=== PATIENT | male | born 1980 | race Native Hawaiian/Other Pacific Islander ===

== ENCOUNTER 2023-03-07 07:27 | Inpatient (IN) | payer OTHER, SELFPAY ==
[2023-03-07] VITALS (10 sets, daily range): BP systolic 133–153; BP diastolic 74–87; PULSE 97–130; RESP 16–28; TEMP 36.8–37.7; O2SAT 93–98; BMI 29.5
--- NOTE | ~2023-03-07 | CT_ITS ---
EXAMINATION: 1. CT pelvis w con 2. CT LE LT wo con DATE: 03/07/2023 08:52 INDICATION: Left groin and thigh abscesses. TECHNIQUE: Computed tomography (CT) of the pelvis was performed with 100 mL Omnipaque [address] of the left thigh was performed without intravenous contrast. Automated exposure contro l and iterative reconstruction technique were employed. The dose-length product was 338.86 mGy-cm for the pelvis and 1007.72 mGy-cm for the left thigh. COMPARISON: None FINDINGS: CT PELVIS: There are no dilated loops of bowel. The appendix is normal. There are no pathologically e nlarged lymph nodes. There is no free intraperitoneal fluid. Arterial calcifications are noted withou t significant arterial stenosis. There is mild osteoarthritis of the hips. CT LEFT THIGH: There is asymmetric subcutaneous fat stranding in left thigh, consistent with edema. T here is intermuscular edema in medial left thigh. At the superficial posterior aspect of gracilis mus kelvin, there is focal fluid measuring 6.4 x 2.5 x 0.9 cm. IMPRESSION: 1. Asymmetric edema in left thigh. Focal fluid at the superficial posterior aspect of left gracilis m uscle may be severe edema, early abscess, or hematoma. Reviewed, dictated and finalized at location A. IMPRESSION: 1. Asymmetric edema in left thigh. Focal fluid at the superficial posterior asp ect of left gracilis muscle may be severe edema, early abscess, or hematoma.
--- NOTE | 2023-03-07 07:53 | ED.GENADULT ---
HPI - General Adult General Chief complaint: Wound/Laceration Stated complaint: abcess on thigh Time Seen by Provider: 03/07/23 07:45 History of Present Illness HPI narrative: 42-year-old male presented the ED for evaluation of an abscess to his left thigh. Patient did have follow-up with his primary care physician and did have the abscess drained and was started on Bactrim. Patient presented to the ED today because he felt that the symptoms were worsening. Patient has no prior history of diabetes but states that his blood sugars have been running high. His blood sugars on arrival today were 370. Related Data Home Medications Medication Instructions Recorded Confirmed No Home Medications 03/07/23 03/07/23 Allergies Allergy/AdvReac Type Severity Reaction Status Date / Time No Known Allergies Allergy Verified 03/07/23 08:06 Review of Systems Review of Systems: All systems reviewed & are unremarkable except as noted in HPI and below PMFSH Past Medical History Medical History (Updated 03/07/23 @ 15:30 by Yumiko Ramos NP) Abscess H/O drainage of abscess Hyperglycemia Wound drainage Family History Family History (Updated 03/07/23 @ 15:32 by Beverly Rose RN) Mother Arthritis Hypertension Social History Social History (Updated 03/07/23 @ 15:31 by Yumiko Ramos NP) Social History: the patient lives home alone. He is single and does not have any children. The patient works in sales for [employer]. Lifelong smoker. He does not have a durable power criminal defense attorney for healthcare. Code status full code Smoking status: Never smoker Alcohol intake: never Substance use: never Lack of Transportation: No Lack of Food: Never True Current Housing: I Have Housing Concerned About Future Housing: No Difficulty Paying Gas/Electric Bills: No Difficulty Paying for Meds: No Currently Unemployed: No Education: Decline to Answer Difficulty w/ Childcare or Family Care: No Spiritual care concerns: No Exam Narrative: APPEARANCE: Well appearing, no pain, no distress, well-nourished. HEAD: normocephalic, atraumatic. EYES: PERRLA/EOMI, conjunctivae clear. NOSE: Normal no drainage NECK: Supple. No adenopathy, no masses. RESPIRATORY: Airway patent, respirations nonlabored. Clear to auscultation bilaterally, no rales, rhonchi, wheezing. CARDIOVASCULAR: Regular rate and rhythm without murmurs rubs or gallops. ABDOMINAL: Soft, nontender, nondistended, normal bowel sounds MUSCULOSKELETAL: Moves all extremities. Strength/ROM intact, No edema, No calf tenderness. NEURO: Alert. Cranial nerves II through XII intact. Grossly intact SKIN: Open abscess on the left leg just lateral to the genitals. Patient also has induration and firmness tracking posteriorly along the buttock Course Course Emergency Course: 42-year-old male presented to the ED for evaluation of a worsening abscess. Patient's blood sugars were 370s and he was treated with IV fluids. Patient was started on IV clindamycin and CT scan with contrast was ordered to evaluate the extent of the abscess. Surgery was consulted. CT scan did show evidence of abscess. I was unable to see the abscess on ultrasound so no incision and drainage was done in the emergency department. Patient did have an elevated white blood cell count of 19.6. Patient had initially been started on clindamycin but after the extent of the abscess and plan for admission patient was switched to Rocepsusann Patrick and Flagyl. Case was discussed with surgery and patient was admitted to the hospitalist. Patient was updated on the plan for admission and treatment. Vital Signs Vital signs: Vital Signs Temperature 99.6 F 03/07/23 07:28 Pulse Rate 130 H 03/07/23 07:28 Respiratory Rate 18 03/07/23 07:28 Blood Pressure 140/78 03/07/23 07:28 Pulse Oximetry 98 03/07/23 07:28 Oxygen Delivery Room Air 03/07/23 07:28 Temperature 99.
[2023-03-07 08:03] LABS: Basophils Absolute Auto 0.1 K/mm3 (0.0-0.1); Basophils Percent Auto 0.4 % (0.2-1.2); Eosinophils Percent Auto 0.1 % (0-4.4); Hematocrit 40.2 % (42.0-52.0); Hemoglobin 13.6 g/dL (14.0-18.0); Immature Granulocyte Absolute 0.29 K/mm3 (0.00-0.031); Immature Granulocyte Percent A 1.5 % (0-0.5); Lymphocytes Percent Auto 10.2 % (18.3-44.2); Mean Corpuscular HGB Conc 33.8 g/dl (32-36); Mean Corpuscular Hemoglobin 30.5 pg (26-34); Mean Corpuscular Volume 90.1 fl (80-100); Mean Platelet Volume 8.6 fl (7.4-10.4); Monocytes Absolute Auto 1.4 K/mm3 (0.1-0.6); Monocytes Percent Auto 6.9 % (2.6-8.5); Neutrophils Absolute Auto 15.9 K/mm3 (1.3-6.7); Neutrophils Percent Auto 80.9 % (45.5-73.1); Platelet Count Result 309 k/mm3 (150-375); Red Blood Count 4.46 M/mm3 (4.6-6.20); Red Cell Distribution Width 12.3 % (11.5-14.5); White Blood Count 19.6 K/mm3 (4.5-10.0)
[2023-03-07] MEDS: CLINDAMYCIN 600 MG/D5W 50 ML 600 MG/50 ML PIGGYBACK 100 MG IVPB (08:09)
[2023-03-07 08:13] LABS: Glucose Point of Care 370 mg/dl (65-105)
[2023-03-07 08:14] LABS: INR 1.1; Prothrombin Time 15.1 Seconds (11.1-14.7)
[2023-03-07 08:15] LABS: Alanine Aminotransferase 28 U/L (6-50); Albumin Level 3.4 g/dL (3.5-5.1); Alkaline Phosphatase 156 U/L (38-126); Anion Gap 11 mmol/L (8-16); Aspartate Amino Transferase 22 U/L (17-59); Bilirubin,Total 0.8 mg/dL (0.2-1.3); Blood Urea Nitrogen 11 mg/dL (9-20); Calcium 8.3 mg/dL (8.4-10.2); Carbon Dioxide 22 mmol/L (22-30); Chloride 92 mmol/L (98-107); Estimated CRCL calculation 148 ml/min; Estimated Glomerular Filt Rate > 60; Glucose 372 mg/dL (65-110); Partial Thromboplastin Time 28.4 SECONDS (22.3-36.8); Potassium 3.9 mmol/L (3.4-5.0); Sodium 125 mmol/L (137-145)
[2023-03-07] MEDS: SODIUM CHLORIDE 0.9% IV 1,000 ML 999 ML IV CONT ×2 (08:47→09:20)
[2023-03-07] MEDS: metroNIDAZOLE 500 MG/ISO 100ML 500 MG/100 ML BAG 100 MG IVPB ×2 (10:27→17:18)
[2023-03-07] MEDS: LIDOCAINE HCL 1% LOCAL INJ 10 ML VIAL INFILTRATE (12:00)
[2023-03-07] MEDS: HYDROmorphone HCL INJ (*CRX) 1 MG/ML SYR 0.5 MG IV PUSH ×3 (12:16→21:39)
[2023-03-07] MEDS: ONDANSETRON INJ 4 MG/2 ML VIAL IV PUSH (12:17)
--- NOTE | 2023-03-07 12:19 | PM.IMHP ---
H&P: HPI History of Present Illness Date/Time: 03/07/23 12:19 Chief Complaint: wound to left thigh Narrative: the patient came to the emergency room here today to be evaluated for left thigh abscess. The patient was seen at [facility] 1 week ago and had an I&D to left thigh and was prescribed antibiotics Bactrim. The patient stated that continued to get worse. Patient thinks that this abscess came about suddenly due to his pants being too tight in rubbing the left thigh causing it to became irritated and an abscess developed. Patient came in with a fever today of 99.6. his blood sugar was 370 today. The patient stated that he had taken metformin 500 mg twice a day up to year ago and stopped taking it because he felt that he was controlling his diabetes with his diet and exercise. The patient was given clindamycin IV fluids vancomycin Rocephin Flagyl and Dilaudid in the emergency room. An I&D was performed in the emergency room with only bloody discharge. The left leg is draining serous sanguinous drainage today. Surgery has been consulted. The patient will be NPO after midnight and will be prepared to go to surgery tomorrow. 19.6 is his white count. H&H 13.6 And 40.2. sodium was 125. Glucose was [address] was read as a following?Asymmetric edema in left thigh. Focal fluid at the superficial posterior aspect of left gracilis muscle may be severe edema, early abscess, or hematoma.The patient is being admitted to observation status on the date of service of 03/07/2020 Review of Systems Review of Systems: All systems reviewed & are unremarkable except as noted in HPI and below Constitutional: Constitutional: Reports as per HPI and Reports no additional constitutional complaints Eyes: Eyes: Reports as per HPI and Reports no additional eye complaints ENT: Reports system reviewed and no additional complaints, except as documented and Reports Normal hearing present Cardiovascular: Cardiovascular: Reports no additional cardiovascular complaints Respiratory: Respiratory: Reports no additional respiratory complaints and Reports no additional respiratory complaints Gastrointestinal: Gastrointestinal: Reports as per HPI and Reports no additional gastrointestinal complaints Musculoskeletal: Musculoskeletal: Reports no additional musculoskeletal complaints Integumentary/Breasts: Skin/Breast: Reports system reviewed and no additional complaints, except as docu and Reports as per HPI Neurologic: Reports system reviewed and no additional complaints, except as documented, Reports as per HPI and Reports Normal hearing present Psychiatric: Psychiatric: Reports no additional psychiatric complaints and Reports as per HPI Endocrine: Endocrine: Reports no additional endocrine complaints Hematologic/Lymphatic: Hematologic/Lymphatic: Reports no additional hematologic/lymphatic complaints Allergic/Immunologic: Allergic/Immunologic: Reports no additional allergic/immunologic complaints PMFSH Past Medical History Medical History (Updated 03/07/23 @ 15:30 by Yumiko Ramos NP) Abscess H/O drainage of abscess Hyperglycemia Wound drainage Family History Family History (Updated 03/07/23 @ 15:30 by Yumiko Ramos NP) Mother Arthritis Hypertension Social History Social History (Updated 03/07/23 @ 15:31 by Yumiko Ramos NP) Social History: the patient lives home alone. He is single and does not have any children. The patient works in sales for [employer] 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 Code status full code Smoking status: Never smoker Alcohol intake: never Substance use: never Lack of Transportation: No Lack of Food: Never True Current Housing: I Have Housing Concerned About Future Housing: No Difficulty Paying Gas/Electric Bills: No Difficulty Paying for Meds: No Currently Unemployed: No Education: Decline to Answer
--- NOTE | 2023-03-07 12:25 | ADMGEN ---
This patient, Woody Lambert, was admitted to 3 [facility] Surg Room 310-01. Patient/family oriented to hospital policies and general routines including ID bracelet, bed and alarms, visiting hours, pain management, procedures, bathroom and other care routines, personal items, smoking policy, room service/diet, and visiting hours. Information on how to activate the Rapid Response Team has been discussed. Patient/Family are encouraged to report perceived risks to care and to ask questions if they do not understand what they are told or what they should do. Report from Sumanth SUAREZ.
--- NOTE | 2023-03-07 13:33 | PM.CNGS ---
Assessment and Plan Assessment and plan (1) Abscess: Code(s): L02.91 - Cutaneous abscess, unspecified Status: Acute Assessment and Plan: will likely need further drainage of posterior area, pt very tender and will need anesthesia for procedure, plan for OR tomorrow, cont local wound care and abx for now (2) Hyperglycemia: Code(s): R73.9 - Hyperglycemia, unspecified Status: Acute Assessment and Plan: new diabetic, mgmt per primary team History of Present Illness Consult details Consult date: 03/07/23 Reason for consult: wound care Requesting physician: Yumiko Ramos NP Narrative: The patient is a 42-year-old male presenting to the emergency department with worsening left posterior thigh abscess. The patient was actually seen in urgent care a few days ago and had drainage of an area anterior to this. The patient was started on antibiotic. The patient reports that since that visit the entire area has become more swollen and painful. Patient reports subjective fevers and chills at home. Workup in the emergency department, including imaging, is significant for worsening edema and focal fluid collection in the left posterior thigh. Of note, the patient is likely a newly diagnosed diabetic as well. Review of Systems Constitutional: Constitutional: Reports as per HPI, Denies anorexia, Reports chills, Reports fatigue, Reports fever(s), Reports lethargy, Reports malaise, Denies poor appetite, Reports weakness, Denies weight gain and Denies weight loss Eyes: Eyes: Reports no additional eye complaints ENT: Reports system reviewed and no additional complaints, except as documented Cardiovascular: Cardiovascular: Reports no additional cardiovascular complaints Respiratory: Respiratory: Reports no additional respiratory complaints Gastrointestinal: Gastrointestinal: Reports as per HPI Genitourinary: Genitourinary: Reports no additional male genitourinary complaints Musculoskeletal: Musculoskeletal: Reports as per HPI Integumentary/Breasts: Skin/Breast: Reports as per HPI Neurologic: Reports system reviewed and no additional complaints, except as documented Psychiatric: Psychiatric: Reports no additional psychiatric complaints Endocrine: Endocrine: Reports no additional endocrine complaints PMFSH Comments No past medical or surgical history FH - DM SH - no tobacco, ETOH Meds Home Medications and Allergies Allergies Allergy/AdvReac Type Severity Reaction Status Date / Time No Known Allergies Allergy Verified 03/07/23 08:06 Vital Signs Vital Signs - 24 hr 03/07/23 07:28 03/07/23 09:05 03/07/23 10:30 Temperature 37.6 C Pulse Rate 130 H 99 98 Respiratory Rate 18 22 H 22 H Blood Pressure 140/78 135/87 136/84 Pulse Oximetry 98 95 93 Oxygen Delivery Room Air 03/07/23 10:31 03/07/23 10:46 03/07/23 11:42 Temperature Pulse Rate 100 98 97 Respiratory Rate 20 19 22 H Blood Pressure 136/84 133/84 138/84 Pulse Oximetry 93 95 96 Oxygen Delivery 03/07/23 12:03 Temperature 36.8 C Pulse Rate 98 Respiratory Rate 16 Blood Pressure 144/74 H Pulse Oximetry 96 Oxygen Delivery Exam Const: General: cooperative, comfortable, no acute distress and overweight HENMT: Head: normal to inspection, normocephalic and atraumatic Eyes: General: appearance normal, both eyes and all related structures Neck: Neck: normal visual inspection, full ROM and no lymphadenopathy Resp: Effort & Inspection: normal respiratory effort Auscultation: clear to auscultation bilaterally Cardio: Rate: regular rate Rhythm: regular rhythm GI: Inspection: normal to inspection and non-distended GI Palp: No abdominal tenderness, Yes Soft to palpation, No Tenderness to palpation present (GI), No Guarding due to palpation present (GI) and No Rigid due to palpation Skin: Other: large area of induration extending from L groin to L posterior thigh, open incision draining some purulent
--- NOTE | 2023-03-07 14:32 | WPDANESEPPF ---
Anes - Initial Pre Proc Eval Procedure: Operation Date: 03/08/23 13:30 Proposed Procedures p Complex Incision And Drainage Left Posterior Thigh Abscess - Padmini Han MD Date/Time: 03/07/23 14:32 Surgeon: Karen Gonsalez DO Pre Op Diagnosis: Hyperglycemia, Abscess Patient Data Age: 42 Gender: M Height: 1.63 m Weight: 77 kg Last Vital Signs Temp 36.8 C 03/07/23 12:03 Pulse 98 03/07/23 12:03 Resp 16 03/07/23 12:03 BP 144/74 H 03/07/23 12:03 Pulse Ox 96 03/07/23 12:03 O2 Del Method Room Air 03/07/23 07:28 Allergies Allergy/AdvReac Type Severity Reaction Status Date / Time No Known Allergies Allergy Verified 03/07/23 08:06 Home Medications Medication Instructions Recorded Confirmed Type No Home Medications 03/07/23 03/07/23 History Laboratory Tests 03/07/23 03/07/23 07:50 07:58 WBC 19.6 H K/mm3 (4.5-10.0) RBC 4.46 L M/mm3 (4.6-6.20) Hgb 13.6 L g/dL (14.0-18.0) Hct 40.2 L % (42.0-52.0) MCV 90.1 fl (80-100) MCH 30.5 pg (26-34) MCHC 33.8 g/dl (32-36) RDW 12.3 % (11.5-14.5) Plt Count 309 k/mm3 (150-375) MPV 8.6 fl (7.4-10.4) Immature Gran % (Auto) 1.5 H % (0-0.5) Neut % (Auto) 80.9 H % (45.5-73.1) Lymph % (Auto) 10.2 L % (18.3-44.2) Guthrie % (Auto) 6.9 % (2.6-8.5) Eos % (Auto) 0.1 % (0-4.4) Baso % (Auto) 0.4 % (0.2-1.2) Lymph # (Auto) 2.00 K/mm3 (0.9-3.2) Guthrie # (Auto) 1.4 H K/mm3 (0.1-0.6) Eos # (Auto) 0.0 K/mm3 (0-0.3) Baso # (Auto) 0.1 K/mm3 (0.0-0.1) Abs Immat Gran (auto) 0.29 H K/mm3 (0.00-0.031) Absolute Neuts (auto) 15.9 H K/mm3 (1.3-6.7) Absolute Nucleated RBC 0.0 K/mm3 (0.0-0.012) Nucleated RBC % 0.0 % (0.0-0.2) PT 15.1 H Seconds (11.1-14.7) INR 1.1 APTT 28.4 SECONDS (22.3-36.8) Sodium 125 L mmol/L (137-145) Potassium 3.9 mmol/L (3.4-5.0) Chloride 92 L mmol/L (98-107) Carbon Dioxide 22 mmol/L (22-30) Anion Gap 11 mmol/L (8-16) BUN 11 mg/dL (9-20) Creatinine 0.50 L mg/dL (0.7-1.3) Estim Creat Clear Calc 148 ml/min Estimated GFR > 60 (59 - ) Glucose 372 H mg/dL (65-110) POC Capillary Glucose 370 H mg/dl (65-105) Calcium 8.3 L mg/dL (8.4-10.2) Total Bilirubin 0.8 mg/dL (0.2-1.3) AST 22 U/L (17-59) ALT 28 U/L (6-50) Alkaline Phosphatase 156 H U/L (38-126) Total Protein 7.0 g/dL (6.3-8.2) Albumin 3.4 L g/dL (3.5-5.1) Patient hx anesthesia problems: none Family hx anesthesia problems: none Results Review: All pre-operative results and documents have been reviewed as part of the pre-operative evaluation. [facility] Past Medical History Medical History (Updated 03/07/23 @ 15:30 by Yumiko Ramos NP) Abscess H/O drainage of abscess Hyperglycemia Wound drainage Family History Family History (Updated 03/07/23 @ 15:32 by Beverly Rose RN) Mother Arthritis Hypertension Social History Social History (Updated 03/07/23 @ 15:31 by Yumiko Ramos NP) Social History: the patient lives home alone. He is single and does not have any children. The patient works in sales for [employer]. 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 Code status full code Smoking status: Never smoker Alcohol intake: never Substance use: never Lack of Transportation: No Lack of Food: Never True Current Housing: I Have Housing Concerned About Future Housing: No Difficulty Paying Gas/Electric Bills: No Difficulty Paying for Meds: No Currently Unemployed: No Education: Decline to Answer Difficulty w/ Childcare or Family Care: No Spiritual care concerns: No Anes - Eval Final PreProcedure Day
[2023-03-07 16:56] LABS: Glucose Point of Care 249 mg/dl (65-105)
[2023-03-07] MEDS: INSULIN ASPART (*BKC) 100 UNITS/ML SUB-Q ×2 (17:18→21:40)
[2023-03-07 18:08] LABS: Anion Gap 10 mmol/L (8-16); Blood Urea Nitrogen 9 mg/dL (9-20); Calcium 7.7 mg/dL (8.4-10.2); Carbon Dioxide 20 mmol/L (22-30); Chloride 95 mmol/L (98-107); Estimated CRCL calculation 180 ml/min; Estimated Glomerular Filt Rate > 60; Glucose 275 mg/dL (65-110); Potassium 3.8 mmol/L (3.4-5.0); Sodium 125 mmol/L (137-145)
[2023-03-07 20:58] LABS: Glucose Point of Care 317 mg/dl (65-105)
[2023-03-07] MEDS: VANCOMYCIN 1,250 MG/NS 250 ML 1,250 MG/250 ML BAG 166.67 MG IVPB (21:39)
[2023-03-08] VITALS (10 sets, daily range): BP systolic 118–154; BP diastolic 75–90; PULSE 94–104; RESP 16–22; TEMP 36.8–37.7; O2SAT 93–99
[2023-03-08] MEDS: metroNIDAZOLE 500 MG/ISO 100ML 500 MG/100 ML BAG 100 MG IVPB ×3 (02:51→17:15)
[2023-03-08 07:26] LABS: Basophils Absolute Auto 0.1 K/mm3 (0.0-0.1); Basophils Percent Auto 0.3 % (0.2-1.2); Eosinophils Absolute Auto 0.1 K/mm3 (0-0.3); Eosinophils Percent Auto 0.3 % (0-4.4); Hematocrit 37.6 % (42.0-52.0); Hemoglobin 12.7 g/dL (14.0-18.0); Immature Granulocyte Absolute 0.38 K/mm3 (0.00-0.031); Immature Granulocyte Percent A 2.1 % (0-0.5); Lymphocytes Absolute Auto 2.23 K/mm3 (0.9-3.2); Lymphocytes Percent Auto 12.3 % (18.3-44.2); Mean Corpuscular HGB Conc 33.8 g/dl (32-36); Mean Corpuscular Hemoglobin 30.6 pg (26-34); Mean Corpuscular Volume 90.6 fl (80-100); Mean Platelet Volume 8.5 fl (7.4-10.4); Monocytes Absolute Auto 1.4 K/mm3 (0.1-0.6); Monocytes Percent Auto 7.9 % (2.6-8.5); Neutrophils Absolute Auto 13.9 K/mm3 (1.3-6.7); Neutrophils Percent Auto 77.1 % (45.5-73.1); Platelet Count Result 338 k/mm3 (150-375); Red Blood Count 4.15 M/mm3 (4.6-6.20); Red Cell Distribution Width 12.4 % (11.5-14.5); White Blood Count 18.1 K/mm3 (4.5-10.0)
[2023-03-08 07:33] LABS: Hemoglobin A1C 11.7 % (<5.7)
[2023-03-08 07:38] LABS: Lactic Acid Reflex 1.1 mmol/L (0.7-2.0)
[2023-03-08 07:43] LABS: Alanine Aminotransferase 24 U/L (6-50); Albumin Level 3.2 g/dL (3.5-5.1); Alkaline Phosphatase 145 U/L (38-126); Anion Gap 7 mmol/L (8-16); Aspartate Amino Transferase 51 U/L (17-59); Bilirubin,Total 0.7 mg/dL (0.2-1.3); Blood Urea Nitrogen 11 mg/dL (9-20); Calcium 8.1 mg/dL (8.4-10.2); Carbon Dioxide 29 mmol/L (22-30); Chloride 94 mmol/L (98-107); Estimated CRCL calculation 126 ml/min; Estimated Glomerular Filt Rate > 60; Glucose 256 mg/dL (65-110); Magnesium 1.9 mg/dL (1.6-2.3); Potassium 4.3 mmol/L (3.4-5.0); Sodium 130 mmol/L (137-145)
[2023-03-08 07:47] LABS: Glucose Point of Care 257 mg/dl (65-105)
--- NOTE | 2023-03-08 08:55 | PM.IMPN ---
Progress Note: A&P Assessment and Plan (1) Abscess: Code(s): L02.91 - Cutaneous abscess, unspecified Status: Acute Assessment and Plan: Patient presented with left thigh pain, swelling and tmax 99.9F. He was taking Bactrim PO prior to admission. CT lower extremity shows possible abscess to left gracilis muscle region. General Surgery consulted and plan for OR drainage today 03/08/23 WBC 19.6 on admission and 18 today 03/08/23. Blood cultures are pending. Continue with IV Vancomycin and Flagyl, first doses given 03/07/23, IV cefepime started 03/08/23. Rocephin IV change to cefepime for pseudomonas coverage. Continue with analgesics PRN. (2) Type 2 diabetes mellitus: Code(s): E11.9 - Type 2 diabetes mellitus without complications Status: Acute Assessment and Plan: The patient previously had been on metformin, which he has not taken for 6-12 months. Accu-Cheks AC and HS with sliding scale insulin. A1c 11.7% family life educator consulted. Diabetic diet when able to eat after surgery. Accu-check AC/HS with moderate scale sliding scale insulin TID with meals and HS. Will add Lantus 10 units HS. Given his A1c insulin therapy would be recommended. He can also be resumed on metformin BID 500 mg with dose titrated up to 1000 mg BID. He will needed insulin teaching. He was counseled on establishing a PCP for monitoring of diabetes. (3) Hyponatremia: Code(s): E87.1 - Hypo-osmolality and hyponatremia Status: Acute Assessment and Plan: Sodium 129 on admission when adjusted for hyperglycemia. Asymptomatic. Sodium 130 (hyperglycemia corrected). continue to monitor sodium level. Plan CODE STATUS: FULL CODE Discharge disposition: from home. Independent with ADLs. Antibiotic: IV Vancomycin & metronidazole (03/07/23-current), IV Cefepime (03/08/23-current) Time Spent With Patient Time with patient: 15 - 25 minutes Subjective Date/time seen: 03/08/23 08:55 Interval history: His left thigh pain and left leg swelling is unchanged. No chills, rigors, night sweats or paresthesia. He denies acute injury. He reports previously taking metformin for diabetes, but his diet was different at that time and has not taken medication in the past 6 months. He has been looking for a new PCP. Review of Systems Review of Systems: All systems reviewed & are unremarkable except as noted in HPI and below Exam Narrative: General: No acute distress. Lying in bed. Nontoxic appearing. Mental Status/Psych: Awake, alert and oriented x4 with clear speech. Pleasant and cooperative. Skin: warm and dry. Left posterior thigh with tenderness to palpation, moderate induration and hot to touch. 3+ edema LLE HEENT: Normocephalic. Sclera is non-icteric. Pupils equal and round. Oral mucosa pink and moist. Neck: No JVD. Heart: S1 and S2 regular rate and rhythm. No murmurs, gallops, or rubs auscultated. Chest: Respirations even and unlabored. Lung sounds are clear to auscultation without wheezes, rhonchi, or rales. Abdomen: Soft, round and non-tender to palpation. Bowel sounds present in all 4 quadrants. No guarding. Extremities: Grossly normal ROM. radial and dorsalis pedis pulses +2 bilaterally. Neurological: No focal deficits. Sensation intact all extremities Objective Data Vital Signs Vital Signs: Vital Signs - 24 hr 03/07/23 09:05 03/07/23 10:30 03/07/23 10:31 Temperature Pulse Rate 99 98 100 Respiratory Rate 22 H 22 H 20 Blood Pressure 135/87 136/84 136/84 Pulse Oximetry 95 93 93 Oxygen Delivery 03/07/23 10:46 03/07/23 11:42 03/07/23 12:03 Temperature 98.3 F Pulse Rate 98 97 98 Respiratory Rate 19 22 H 16 Blood Pressure 133/84 138/84 144/74 H Pulse Oximetry 95 96 96 Oxygen Delivery 03/07/23 12:25 03/07/23 14:00 03/07/23 12:25 Temperature 99.1 F 99.9 F H Pulse Rate 102 H 110 H Respiratory Rate 28 H 26 H Blood Pressure 153/79 H
[2023-03-08] MEDS: CEFEPIME 2 GM/NS 50 ML 2 GM/50 ML BAG IVPB ×3 (09:42→21:02)
--- NOTE | 2023-03-08 10:47 | WPDHPUPDATE1 ---
History and Physical Update Update Date/Time: 03/08/23 10:47 History and Physical has been reviewed, including an updated exam of the patient. There are NO changes in the patient's condition. Risks, benefits, and alternatives have been discussed and questions answered. Patient agrees to proceed with procedure.
[2023-03-08] MEDS: VANCOMYCIN 1,250 MG/NS 250 ML 1,250 MG/250 ML BAG 166.67 MG IVPB (11:35)
[2023-03-08 11:48] LABS: Glucose Point of Care 250 mg/dl (65-105)
--- NOTE | 2023-03-08 13:17 | SUR.PREOP ---
1317- Checked patient's blood glucose, [address] Ramsey at bedside and aware of BG. No orders at this time.
[2023-03-08 13:23] LABS: Glucose Point of Care 249 mg/dl (65-105)
[2023-03-08] MEDS: LACTATED RINGERS 1,000 ML 30 ML IV CONT (13:25)
[2023-03-08] MEDS: BUPIVACAINE/EPINEPHRINE 0.5% 50 ML VIAL 10 ML INFILTRATE (14:30)
--- NOTE | 2023-03-08 14:45 | W.PM.PROC2 ---
Procedure Note - Detailed Date of Procedure 03/08/23 Pre-op Diagnosis Left posterior thigh abscess measuring approximately 15 x 14 cm Post-op Diagnosis Same Procedure Performed complex incision and drainage left posterior thigh abscess measuring approximately 15 x 14 cm Surgeon Padmini Han MD Anesthesia General and Local Indications 42-year-old male presenting to the hospital with a worsening left posterior thigh abscess. Patient incision and drainage as outpatient in Urgent Care however continued to worsen. Patient is also newly diagnosed diabetic. Findings Large complex abscess involving the posterior medial thigh measuring 15 x 14 cm with copious amounts of purulence Description of Procedure The patient was taken to the operating room and placed in the modified lithotomy position. After adequate induction of general anesthesia, the patient was prepped and draped in the normal sterile fashion. A time-out was then done to verify the patient's identity, as well as the procedure being performed. I began by localizing the area and around this abscess. Of note in the anterior portion of the abscess there had been a previous I&D site. I then made a large incision over the most fluctuant area of this abscess. Immediately upon getting into the cavity a copious amount purulent drainage was noted. I then used a hemostat to bluntly dissect around this cavity, including opening up the previous tract that connected to the anterior incision site. That site was also opened to allow further drainage. Using the hemostat I broke up further loculations and was able to explore the entirety of the cavity. Once all loculations were broken the cavity measured approximately 15 x 14 cm. This was all contained within the subcutaneous tissue and did not involve the underlying fascia or muscle. I then copiously irrigated the cavity. I then packed the area with half-inch iodoform packing tape to keep both sites open and draining. Sterile dressing was then placed. The patient tolerated the procedure well and was extubated postoperatively. He will be sent to the recovery room in stable condition. Estimated Blood Loss 5 Urine Output 850 Drains No Packing Yes Pathology None sent Complications No immediate complications Condition Stable Disposition PACU [facility] Billing Surgery - Charge Forward: Surgery Billing
[2023-03-08 15:15] LABS: Glucose Point of Care 222 mg/dl (65-105)
[2023-03-08] MEDS: INSULIN ASPART (*BKC) 100 UNITS/ML SUB-Q ×2 (17:14→21:47)
[2023-03-08 17:19] LABS: Glucose Point of Care 234 mg/dl (65-105)
[2023-03-08] MEDS: HYDROmorphone HCL INJ (*CRX) 1 MG/ML SYR 0.5 MG IV PUSH (21:01)
[2023-03-08 21:30] LABS: Vancomycin Trough 5.2 ug/mL (10.0-20.0)
[2023-03-08] MEDS: INSULIN GLARGINE (*BKC) 100 UNITS/ML 10 UNITS SUB-Q (21:47)
[2023-03-09] MEDS: metroNIDAZOLE 500 MG/ISO 100ML 500 MG/100 ML BAG 100 MG IVPB ×3 (02:41→18:12)
[2023-03-09] MEDS: HYDROmorphone HCL INJ (*CRX) 1 MG/ML SYR 0.5 MG IV PUSH ×2 (02:45→10:25)
[2023-03-09 05:32] VITALS: BP 137/89; PULSE 97; RESP 16; TEMP 36.7; O2SAT 98
[2023-03-09] MEDS: CEFEPIME 2 GM/NS 50 ML 2 GM/50 ML BAG IVPB ×3 (05:41→22:33)
[2023-03-09 05:51] LABS: Basophils Absolute Auto 0.1 K/mm3 (0.0-0.1); Basophils Percent Auto 0.3 % (0.2-1.2); Eosinophils Absolute Auto 0.1 K/mm3 (0-0.3); Eosinophils Percent Auto 0.5 % (0-4.4); Hematocrit 37.7 % (42.0-52.0); Hemoglobin 12.8 g/dL (14.0-18.0); Lymphocytes Percent Auto 13.7 % (18.3-44.2); Mean Corpuscular Hemoglobin 30.3 pg (26-34); Mean Corpuscular Volume 89.1 fl (80-100); Mean Platelet Volume 8.3 fl (7.4-10.4); Monocytes Absolute Auto 1.4 K/mm3 (0.1-0.6); Monocytes Percent Auto 9.8 % (2.6-8.5); Neutrophils Absolute Auto 10.8 K/mm3 (1.3-6.7); Neutrophils Percent Auto 73.7 % (45.5-73.1); Platelet Count Result 359 k/mm3 (150-375); Red Blood Count 4.23 M/mm3 (4.6-6.20); Red Cell Distribution Width 12.2 % (11.5-14.5); White Blood Count 14.7 K/mm3 (4.5-10.0)
[2023-03-09 06:01] LABS: Alanine Aminotransferase 26 U/L (6-50); Albumin Level 3.3 g/dL (3.5-5.1); Alkaline Phosphatase 140 U/L (38-126); Anion Gap 6 mmol/L (8-16); Aspartate Amino Transferase 27 U/L (17-59); Bilirubin,Total 0.7 mg/dL (0.2-1.3); Blood Urea Nitrogen 9 mg/dL (9-20); Calcium 7.9 mg/dL (8.4-10.2); Carbon Dioxide 31 mmol/L (22-30); Chloride 91 mmol/L (98-107); Estimated CRCL calculation 148 ml/min; Estimated Glomerular Filt Rate > 60; Glucose 297 mg/dL (65-110); Potassium 4.1 mmol/L (3.4-5.0); Sodium 128 mmol/L (137-145)
[2023-03-09 07:30] LABS: Glucose Point of Care 309 mg/dl (65-105)
[2023-03-09] MEDS: INSULIN ASPART (*BKC) 100 UNITS/ML SUB-Q ×5 (08:03→21:25)
--- NOTE | 2023-03-09 09:42 | WPDANESPN ---
Anes - Prog Note Post-Op Date/Time: 03/09/23 09:42 Cardiovascular status: normal Respiratory status: normal Airway patency: baseline Mental status: baseline Post-Op hydration status: normal Vital Signs: Last Vital Signs Temp 98.1 F 03/09/23 05:32 Pulse 97 03/09/23 05:32 Resp 16 03/09/23 05:32 BP 137/89 03/09/23 05:32 Pulse Ox 98 03/09/23 05:32 O2 Del Method Room Air 03/08/23 22:20 O2 Flow Rate 8 03/08/23 14:42 Pain Score (VAS): 5 I/O: Intake & Output 03/08/23 03/09/23 03/09/23 23:59 07:59 15:59 Intake Total 510 950 738 Output Total 2300 850 Balance 510 -1350 -112 Laboratory Tests 03/09/23 05:40 03/09/23 05:40 03/08/23 03/08/23 03/08/23 11:19 13:17 15:12 WBC RBC Hgb Hct MCV MCH MCHC RDW Plt Count MPV Immature Gran % (Auto) Neut % (Auto) Lymph % (Auto) [place] % (Auto) Eos % (Auto) Baso % (Auto) Lymph # (Auto) [place] # (Auto) Eos # (Auto) Baso # (Auto) Abs Immat Gran (auto) Absolute Neuts (auto) Absolute Nucleated RBC Nucleated RBC % Sodium Potassium Chloride Carbon Dioxide Anion Gap BUN Creatinine Estim Creat Clear Calc Estimated GFR Glucose POC Capillary Glucose 250 H 249 H 222 H Calcium Total Bilirubin AST ALT Alkaline Phosphatase Total Protein Albumin Vancomycin Trough 03/08/23 03/08/23 03/09/23 16:28 20:53 05:40 WBC 14.7 H RBC 4.23 L Hgb 12.8 L Hct 37.7 L MCV 89.1 MCH 30.3 MCHC 34.0 RDW 12.2 Plt Count 359 MPV 8.3 Immature Gran % (Auto) 2.0 H Neut % (Auto) 73.7 H Lymph % (Auto) 13.7 L [place] % (Auto) 9.8 H Eos % (Auto) 0.5 Baso % (Auto) 0.3 Lymph # (Auto) 2.00 [place] # (Auto) 1.4 H Eos # (Auto) 0.1 Baso # (Auto) 0.1 Abs Immat Gran (auto) 0.30 H Absolute Neuts (auto) 10.8 H Absolute Nucleated RBC 0.0 Nucleated RBC % 0.0 Sodium 128 L Potassium 4.1 Chloride 91 L Carbon Dioxide 31 H Anion Gap 6 L BUN 9 Creatinine 0.50 L Estim Creat Clear Calc 148 Estimated GFR > 60 Glucose 297 H POC Capillary Glucose 234 H Calcium 7.9 L Total Bilirubin 0.7 AST 27 ALT 26 Alkaline Phosphatase 140 H Total Protein 7.0 Albumin 3.3 L Vancomycin Trough 5.2 L 03/09/23 07:18 WBC RBC Hgb Hct MCV MCH MCHC RDW Plt Count MPV Immature Gran % (Auto) Neut % (Auto) Lymph % (Auto) [place] % (Auto) Eos % (Auto) Baso % (Auto) Lymph # (Auto) [place] # (Auto) Eos # (Auto) Baso # (Auto) Abs Immat Gran (auto) Absolute Neuts (auto) Absolute Nucleated RBC Nucleated RBC % Sodium Potassium Chloride Carbon Dioxide Anion Gap BUN Creatinine Estim Creat Clear Calc Estimated GFR Glucose POC Capillary Glucose 309 H Calcium Total Bilirubin AST ALT Alkaline Phosphatase Total Protein Albumin Vancomycin Trough Microbiology 03/07/23 08:37 Blood Blood Culture - Preliminary 03/07/23 08:36 Blood Blood Culture - Preliminary Post-procedural complaints: none Patient Feedback: Patient satisfied with anesthetic care.
[2023-03-09 11:27] LABS: Glucose Point of Care 290 mg/dl (65-105)
--- NOTE | 2023-03-09 12:50 | PM.PNGS ---
Progress Note: A&P Assessment and Plan (1) Abscess: Code(s): L02.91 - Cutaneous abscess, unspecified Status: Acute Assessment and Plan: cont local wound care, cont IV abx, likely home tomorrow Subjective Subjective Date/Time Seen: 03/09/23 12:50 Interval history: feels better, incisional soreness but pressure much improved Review of Systems Review of Systems: All systems reviewed & are unremarkable except as noted in HPI and below Exam Const: General: cooperative, comfortable and no acute distress GI: Inspection: normal to inspection Skin: Other: L post thigh - incision draining well, decreased induration Objective Data Vital Signs Vital Signs: Vital Signs - 24 hr 03/08/23 13:15 03/08/23 14:42 03/08/23 14:55 Temperature 37.7 C H 37.3 C Pulse Rate 104 H 94 96 Respiratory Rate 16 18 20 Blood Pressure 135/80 118/78 131/86 Pulse Oximetry 98 99 97 Oxygen Delivery Room Air Simple Face Mask Room Air Oxygen Flow Rate 8 03/08/23 15:00 03/08/23 15:15 03/08/23 15:30 Temperature Pulse Rate 97 97 97 Respiratory Rate 22 H 19 20 Blood Pressure 127/88 138/85 131/86 Pulse Oximetry 95 97 95 Oxygen Delivery Room Air Room Air Room Air Oxygen Flow Rate 03/08/23 16:26 03/08/23 21:25 03/08/23 22:20 Temperature 37.0 C 36.8 C Pulse Rate 104 H 103 H Respiratory Rate 16 16 Blood Pressure 154/90 H 145/89 H Pulse Oximetry 97 93 93 Oxygen Delivery Room Air Oxygen Flow Rate 03/09/23 05:32 03/09/23 08:00 Temperature 36.7 C Pulse Rate 97 Respiratory Rate 16 Blood Pressure 137/89 Pulse Oximetry 98 Oxygen Delivery Room Air Oxygen Flow Rate Intake/Output Intake/Output: Intake & Output 03/06/23 03/07/23 03/08/23 03/09/23 23:59 23:59 23:59 23:59 Intake Total 4540 1970 1688 Output Total 1700 3825 Balance 4548 307 -0956 Meds/Results Medications: Active Medications Generic Name Dose Route Start Last Admin Trade Name Freq PRN Reason Stop Dose Admin Dextrose 12.5 gm 03/07/23 15:23 Dextrose 50% 25 Gm/50 Ml Syringe IV PUSH PRN PRN Hypoglycemia Protocol Glucagon 1 mg 03/07/23 15:23 Glucagon For Inj 1 Mg Vial IM PRN PRN Hypoglycemia Protocol Glucose 15 gm 03/07/23 15:23 Glucose Oral Gel 15 Gm Of Glucse In 37.5 Gm Tube PO PRN PRN Hypoglycemia Protocol Hydromorphone HCl 0.5 mg 03/07/23 11:22 03/09/23 10:25 Hydromorphone Hcl Inj (*Crx) 1 Mg/Ml Syr IV PUSH 0.5 mg Q4H PRN Administration Pain Rated 7-10 Metronidazole 500 mg in 100 mls @ 100 mls/hr 03/07/23 18:00 03/09/23 10:06 Flagyl 500 Mg/Iso Soln 100 Ml IVPB 100 mls/hr Q8H SALUD Administration Dextrose 1,000 mls @ 100 mls/hr 03/07/23 15:23 Dextrose 5% 1,000 Ml IVPB PRN PRN Hypoglycemia Protocol Cefepime HCl 2 gm in 50 mls @ 100 mls/hr 03/08/23 09:00 03/09/23 05:41 Maxipime 2 Gm/Ns 50 Ml IVPB 100 mls/hr Q8HR SALUD Administration Vancomycin HCl 1,500 mg in 500 mls @ 250 mls/hr 03/08/23 23:00 03/09/23 06:59 Vancomycin 1,500 Mg/D5w 500 Ml IVPB 250 mls/hr Q8H SALUD Administration Insulin Aspart 3 - 6 units 03/07/23 17:00 03/09/23 12:02 Insulin Aspart (*Bkc) 100 Units/Ml SUB-Q 4 units TIDWM SALUD Administration Protocol Insulin Aspart 1 - 3 units 03/07/23 21:00 03/08/23 21:47 Insulin Aspart (*Bkc) 100 Units/Ml SUB-Q 1 units HS SALUD Administration Protocol Insulin Glargine 10 units 03/08/23 21:00 03/08/23 21:47 Insulin Glargine (*Bkc) 100 Units/Ml SUB-Q 10 units HS SALUD Administration Ondansetron HCl 4 mg 03/07/23 11:22 03/07/23 12:17 Ondansetron Inj 4 Mg/2 Ml Vial IV PUSH 4 mg Q4H PRN Administration Nausea Radiology Results: ITS Impressions Lower Extremity CT 03/07/23 08:55 IMPRESSION: 1. Asymmetric edema in left thigh. Focal fluid at the superficial posterior aspect of left gracilis muscle may be severe e
--- NOTE | 2023-03-09 14:56 | PM.IMPN ---
Progress Note: A&P Assessment and Plan (1) Abscess: Code(s): L02.91 - Cutaneous abscess, unspecified Status: Acute Assessment and Plan: Patient presented with left thigh pain, swelling and tmax 99.9F. He was taking Bactrim PO prior to admission. CT lower extremity showed possible abscess to left gracilis muscle region. Patient was seen in consultation by General surgery. Taken to the OR on 03/08/2023 for complex incision and drainage of left posterior thigh abscess WBC 19.6 on admission, improved to 14.7 today Blood cultures are pending, negative today. Continue with IV Vancomycin and Flagyl, first doses given 03/07/23, IV cefepime started 03/08/23. Rocephin IV changed to cefepime for pseudomonas coverage. Continue with analgesics PRN. (2) Type 2 diabetes mellitus: Code(s): E11.9 - Type 2 diabetes mellitus without complications Status: Acute Assessment and Plan: The patient previously had been on metformin, which he has not taken for 6-12 months. Accu-Cheks AC and HS with sliding scale insulin. A1c 11.7% director market research consulted. Diabetic diet Accu-check AC/HS with moderate scale sliding scale insulin TID with meals and HS. Continue Lantus 10 units HS. Will add scheduled NovoLog with meals while inpatient Given his A1c insulin therapy would be recommended, patient agreeable. He can also be resumed on metformin BID 500 mg with dose titrated up to 1000 mg BID. He will need insulin teaching. He was counseled on establishing a PCP for monitoring of diabetes. (3) Hyponatremia: Code(s): E87.1 - Hypo-osmolality and hyponatremia Status: Acute Assessment and Plan: Sodium 129 on admission when adjusted for hyperglycemia. Asymptomatic. Sodium 131 (hyperglycemia corrected). continue to monitor sodium level. Plan CODE STATUS: FULL CODE Discharge disposition: from home. Independent with ADLs. Antibiotic: IV Vancomycin & metronidazole (03/07/23-current), IV Cefepime (03/08/23-current) Hopeful discharge home tomorrow if continued improvement Subjective Date/time seen: 03/09/23 14:56 Interval history: Date of service: 03/09/2023 Woody Lambert is a 42-year-old male with a history of poorly controlled type 2 diabetes mellitus who is seen in follow-up for abscess of left thigh. He underwent I&D yesterday and tolerated this procedure well. Pain is improved at this time. Currently rates his thigh pain is 5-6/10. Denies fever, chills, nausea, vomiting, dizziness, lightheadedness, weakness. He is tolerating his diet without difficulty. He does endorse urinary frequency but denies dysuria or hematuria. He has been able to ambulate independently today. Last bowel movement was 2 days ago. Review of Systems Review of Systems: All systems reviewed & are unremarkable except as noted in HPI and below Exam Narrative: General: Well-nourished, well-appearing 42-year-old male, sitting up in bed, comfortable, NARD Neuro: awake, alert and oriented x4, speech clear, no focal neuro deficits noted HEENMT: normocephalic, atraumatic, EOMI, sclerae anicteric Respiratory: clear to auscultation bilaterally, nonlabored breathing Cardio: regular rate, regular rhythm with S1-S2 Abdomen: nondistended, normoactive bowel sounds, soft, nontender to palpation Extremities: no edema, erythema, or tenderness to palpation Skin: Left medial thigh covered with dressing that is clean and dry Psych: appropriate mood and affect, judgment and insight intact Objective Data Vital Signs Vital Signs: Vital Signs - 24 hr 03/08/23 15:00 03/08/23 15:15 03/08/23 15:30 Temperature Pulse Rate 97 97 97 Respiratory Rate 22 H 19 20 Blood Pressure 127/88 138/85 131/86 Pulse Oximetry 95 97 95 Oxygen Delivery Room Air Room Air Room Air 03/08/23 16:26 03/08/23 21:25 03/08/23 22:20 Temperature 98.6 F 98.2 F Pulse Rate 104 H 103 H Respiratory Rate 16 16 Blood
[2023-03-09 15:00] VITALS: BP 150/90; PULSE 98; RESP 22; TEMP 36; O2SAT 94
[2023-03-09] MEDS: HYDROcodone/acetaminophen (*CRX) 5-325 MG TABLET 1 TAB PO ×2 (16:05→22:31)
[2023-03-09 16:16] LABS: Glucose Point of Care 333 mg/dl (65-105)
[2023-03-09 18:37] LABS: Vancomycin Peak 12.7 ug/mL (20-40)
[2023-03-09 20:58] LABS: Glucose Point of Care 294 mg/dl (65-105)
[2023-03-09 21:11] VITALS: BP 139/81; PULSE 93; RESP 16; TEMP 36.6; O2SAT 98
[2023-03-09] MEDS: INSULIN GLARGINE (*BKC) 100 UNITS/ML 10 UNITS SUB-Q (21:26)
[2023-03-09 22:36] LABS: Vancomycin Trough 11.8 ug/mL (10.0-20.0)
[2023-03-10] MEDS: metroNIDAZOLE 500 MG/ISO 100ML 500 MG/100 ML BAG 100 MG IVPB ×2 (02:35→11:04)
[2023-03-10 05:55] LABS: Basophils Absolute Auto 0.1 K/mm3 (0.0-0.1); Basophils Percent Auto 0.5 % (0.2-1.2); Eosinophils Absolute Auto 0.2 K/mm3 (0-0.3); Eosinophils Percent Auto 1.3 % (0-4.4); Hematocrit 38.9 % (42.0-52.0); Hemoglobin 13.2 g/dL (14.0-18.0); Immature Granulocyte Absolute 0.31 K/mm3 (0.00-0.031); Immature Granulocyte Percent A 2.1 % (0-0.5); Lymphocytes Absolute Auto 2.05 K/mm3 (0.9-3.2); Lymphocytes Percent Auto 13.6 % (18.3-44.2); Mean Corpuscular HGB Conc 33.9 g/dl (32-36); Mean Corpuscular Hemoglobin 30.5 pg (26-34); Mean Corpuscular Volume 89.8 fl (80-100); Mean Platelet Volume 8.3 fl (7.4-10.4); Monocytes Absolute Auto 1.2 K/mm3 (0.1-0.6); Monocytes Percent Auto 8.1 % (2.6-8.5); Neutrophils Absolute Auto 11.2 K/mm3 (1.3-6.7); Neutrophils Percent Auto 74.4 % (45.5-73.1); Platelet Count Result 419 k/mm3 (150-375); Red Blood Count 4.33 M/mm3 (4.6-6.20); Red Cell Distribution Width 12.2 % (11.5-14.5); White Blood Count 15.1 K/mm3 (4.5-10.0)
[2023-03-10 06:10] LABS: Anion Gap 6 mmol/L (8-16); Blood Urea Nitrogen 10 mg/dL (9-20); Carbon Dioxide 32 mmol/L (22-30); Chloride 93 mmol/L (98-107); Estimated CRCL calculation 180 ml/min; Estimated Glomerular Filt Rate > 60; Glucose 302 mg/dL (65-110); Potassium 4.1 mmol/L (3.4-5.0); Sodium 131 mmol/L (137-145)
[2023-03-10] MEDS: HYDROcodone/acetaminophen (*CRX) 5-325 MG TABLET 1 TAB PO ×2 (06:11→13:16)
[2023-03-10] MEDS: CEFEPIME 2 GM/NS 50 ML 2 GM/50 ML BAG IVPB ×2 (06:12→14:03)
[2023-03-10 06:31] VITALS: BP 132/72; PULSE 94; RESP 16; TEMP 36.2; O2SAT 95
[2023-03-10 07:29] LABS: Glucose Point of Care 282 mg/dl (65-105)
[2023-03-10] MEDS: INSULIN ASPART (*BKC) 100 UNITS/ML SUB-Q ×6 (08:01→16:51)
[2023-03-10 11:32] LABS: Glucose Point of Care 311 mg/dl (65-105)
--- NOTE | 2023-03-10 11:48 | PM.DS ---
DS: Admitting Diagnosis Discharge Date 03/10/2023 Admitting Diagnosis Abscess of left thigh DS: Discharge Diagnosis Discharge Diagnosis (1) Abscess: Code(s): L02.91 - Cutaneous abscess, unspecified Status: Acute Assessment and Plan: Patient presented with left thigh pain, swelling and tmax 99.9F. He was taking Bactrim PO prior to admission. CT lower extremity showed possible abscess to left gracilis muscle region. Received IV vancomycin, Flagyl, cefepime during admission Patient was seen in consultation by General surgery. Taken to the OR on 03/08/2023 for complex incision and drainage of left posterior thigh abscess Symptomatic improvement following I and D. Leukocytosis with overall improvement, patient remained afebrile through remainder of admission. Blood cultures negative to date at time of discharge, final cultures will be monitored Discharged on 10 day course of p.o. Bactrim per General surgery Course of analgesics provided Patient will follow-up with Dr. Han in the wound clinic on 03/21/2023 Glycemic control is imperative for wound healing (2) Type 2 diabetes mellitus: Code(s): E11.9 - Type 2 diabetes mellitus without complications Status: Acute Assessment and Plan: The patient previously had been on metformin, which he self discontinued and has been off for 6-12 months A1c 11.7% Patient was seen in consultation by internal affairs investigator during admission. Recommend continued outpatient Diabetes Education Blood sugars managed during admission with Accu-Cheks, sliding scale insulin, scheduled NovoLog with meals, Lantus q.h.s. with some improvement Will continue Lantus 10 units q.h.s. as an outpatient. Patient educated on insulin administration and feels comfortable with this Started on metformin 500 mg BID, may uptitrate to 1000 mg b.i.d. as tolerated Referred to on-call PCP for follow-up of diabetes management. Patient aware of need for establishing care with PCP Diabetic diet (3) Hyponatremia: Code(s): E87.1 - Hypo-osmolality and hyponatremia Status: Acute Assessment and Plan: Due to hyperglycemia. Sodium 129 on admission when adjusted for hyperglycemia. Asymptomatic. Sodium 134 at time of discharge (corrected). DS: Summary Hospital Course Hospital Course: Date of admission: 03/07/2023 Date of discharge: 03/10/2023 Woody Lambert is a 42-year-old male with a history of poorly controlled type 2 diabetes mellitus who presented to the emergency department on 03/07/2023 for evaluation of left thigh abscess. He had been taking Bactrim as an outpatient but felt that his symptoms were worsening. On presentation, patient was tachycardic and tachypneic, temperature 99.9?, WBC 19.6, hemoglobin 13.6, sodium 125 (129 corrected), glucose 275, lower extremity CT showed asymmetric edema of the left thigh with focal fluid of the superficial posterior aspect of left gracilis muscle concerning for edema versus early abscess. He was admitted to hospitalist service for further evaluation and management and was seen in consultation by Orthopedic surgery. Please see above for further details. He underwent I&D in the OR on 03/08/2023 and tolerated the procedure well. Had symptomatic improvement following drainage. Case was discussed with general surgery and patient was felt to be stable for discharge. He will follow-up with Dr. Han as an outpatient in the Wound Clinic. Discussed with the patient worrisome signs and symptoms for which to return and he was educated on his medications. Patient is aware of need for glucose monitoring, initiation of insulin and metformin. He is motivated to implement dietary/lifestyle changes. He was comfortable with discharge plans. Discharged in hemodynamically stable condition on 03/10/2023 Time Spent with Patient Time attestation: Total time spent providing and/or coordinating discharge services: 55 minutes Time spent
[2023-03-10 12:30] VITALS: BP 135/87; PULSE 92; RESP 22; TEMP 36.6; O2SAT 97
[2023-03-10 16:34] LABS: Glucose Point of Care 265 mg/dl (65-105)
== END 2023-03-10 17:50 | disposition home or self-care (01) | DRG 603 ==
LOC: ANHED 08:30 → ANH3MEDSUR 11:44
PROVIDERS: Nurse Practitioner; Nurse Practitioner Family; Surgery; Admitting Provider Student in an Organized Health Care Education/Training Program; Emergency Provider Emergency Medicine; Visit Provider Physician Assistant
PROC: 0J9M0ZZ Drainage of Left Upper Leg Subcutaneous Tissue and Fascia, Open Approach (ICD-10-PCS; principal; 2023-03-08 14:30)
DX: L02.416 Cutaneous abscess of left lower limb (principal); E87.1 Hypo-osmolality and hyponatremia; E11.65 Type 2 diabetes mellitus with hyperglycemia
CPT/HCPCS: 36415; 72193; 73700; 80048; 80053; 80202; 82948; 83036; 83605; 83735; 84443; 85025; 85610; 85730; 87040; 96365; 96366; 96367; 96375; 96376; 99285; A9270; G0378; J0692; J0696; J1170; J1815; J2250; J2405; J2704; J3010; J3370; J7030; J7120; Q9967

== ENCOUNTER 2023-03-21 08:49 | Outpatient (RCR) | payer OTHER, SELFPAY ==
--- NOTE | 2023-03-21 10:00 | WPDWOUNDNOTE ---
Wound Care Note Date/Time: 03/21/23 10:00 History: 42-year-old male with newly diagnosed diabetes presented with a left posterior thigh abscess. Patient is status post I and D. patient has since been discharged and has been doing local wound care at home. Patient reports that he has completed course of antibiotics at this time. Patient reports that the area seems to be healing well and is much less tender than before. Patient reports some yellowish drainage, however no further fevers chills or systemic symptoms. Wound history: Status post incision and drainage, top incision has closed completely, bottom incision is still slightly open with serous discharge Wound width: 1 cm Wound length: 1 cm Wound depth: 4 cm Drainage: serous discharge Surrounding tissue appearance: healthy, mild residual induration Tunnelin cm Percentage granulation tissue: 100 Dressings: will pack with iodoform to keep tract open and draining Assessment and Plan Assessment and plan (1) Type 2 diabetes mellitus: Code(s): E11.9 - Type 2 diabetes mellitus without complications Status: Acute Assessment and Plan: continue to work with PCP with newly diagnosed diabetes, currently now only on metformin (2) Abscess: Code(s): L02.91 - Cutaneous abscess, unspecified Status: Acute Assessment and Plan: overall doing well, continue local wound care, follow-up 2 weeks Review of Systems Review of Systems: All systems reviewed & are unremarkable except as noted in HPI and below Exam Const: General: cooperative, comfortable and no acute distress Resp: Auscultation: clear to auscultation bilaterally Cardio: Rate: regular rate Rhythm: regular rhythm GI: Inspection: normal to inspection
[2023-03-21 14:55] VITALS: BMI 28.3
--- NOTE | 2023-04-06 09:26 | PCWOUND ---
Addendum entered by Katia Short RN 04/06/23 09:33: Spoke with Piedad in Dr. Han's office, patient is now following in their office, he has a follow up scheduled for today. Original Note: WOCN NOTE Patient did not show up for his appointment. Call was made to patient on 04/04/23 as a reminder of appointment and to contact office if he needed to cancel. Patient did not call or leave message about cancellation
== END 2023-05-12 13:03 | disposition home or self-care (01) ==
LOC: ANHWOC 08:49
PROVIDERS: Visit Provider Surgery
DX: E11.622 Type 2 diabetes mellitus with other skin ulcer (principal); L97.128 Non-pressure chronic ulcer of left thigh with other specified severity
CPT/HCPCS: 99213; G0463

== ENCOUNTER 2023-03-27 10:17 | Emergency (ER) | payer OTHER, SELFPAY ==
[2023-03-27 11:19] VITALS: BP 134/89; PULSE 107; RESP 17; TEMP 36.5; O2SAT 100
[2023-03-27 14:30] VITALS: BP 134/76; PULSE 96; RESP 16; O2SAT 97
--- NOTE | 2023-03-27 14:44 | ED.SKABFB ---
HPI - Skin/Abscess/Foreign Bdy General Chief complaint: Skin/Abscess/Foreign Body Stated complaint: post op skin irritation (abcess left thigh) Time Seen by Provider: 03/27/23 13:45 History of Present Illness HPI narrative: This is a 42-year-old male with past history of diabetes, status post abscess drainage in the OR by Dr. Han of the left leg, who presents to the emergency department complaining of swelling and increased pain of the left leg. The patient states he was followed by the wound clinic and had continued drainage and improvement of his symptoms. Today before running, he noted swelling and 4/10 dull and stinging pain in the left leg. He denies fevers, chills, other leg swelling, shortness of breath or chest pain. Related Data Home Medications Medication Instructions Recorded Confirmed insulin glargine-yfgn 100 unit/mL unit subcut 03/27/23 (3 mL) subcutaneous pen (Semglee (insulin glargine-yfgn) Pen) Allergies Allergy/AdvReac Type Severity Reaction Status Date / Time No Known Allergies Allergy Verified 03/27/23 14:10 Review of Systems Review of Systems: CONSTITUTIONAL: Denies fever, chills, or sweats. CARDIOVASCULAR: Denies chest pain, palpitations, or edema. RESPIRATORY: Denies cough or dyspnea. GASTROINTESTINAL: Denies abdominal pain, nausea, vomiting, or diarrhea. GENITOURINARY: Denies dysuria or hematuria. SKIN: Swelling, redness and tenderness of the left medial thigh. Denies rash or itching. MUSCULOSKELETAL: Denies back pain, joint pain, or myalgia. NEUROLOGIC: Denies headache, numbness, dizziness, or weakness. PSYCHIATRIC: Denies anxiety or depression. [facility] Past Medical History Medical History Abscess H/O drainage of abscess Hyperglycemia Type 2 diabetes mellitus Wound drainage Family History Family History Mother Arthritis Hypertension Social History Social History Social History: the patient lives home alone. He is single and does not have any children. The patient works in sales for [employer]. Lifelong smoker. He does not have a durable power attorney lawyer for healthcare. Code status full code Smoking status: Never smoker Alcohol intake: never Substance use: never Lack of Transportation: No Lack of Food: Never True Current Housing: I Have Housing Concerned About Future Housing: No Difficulty Paying Gas/Electric Bills: No Difficulty Paying for Meds: No Currently Unemployed: No Education: Decline to Answer Difficulty w/ Childcare or Family Care: No Spiritual care concerns: No Exam Narrative: GENERAL: Well-developed, well-nourished, and in no acute distress. HEAD: Normocephalic, atraumatic. EYES: PERRLA and EOMI. CHEST: Clear to auscultation. No respiratory distress. No wheezes rales or rhonchi HEART: Regular rate and rhythm. No murmur heard. Normal peripheral pulses. ABDOMEN: Soft, nontender, nondistended, normal active bowel sounds. EXTREMITIES: An approximate 12 x 9 cm area of erythema and tender induration with fluctuance is noted at the medial aspect of the left thigh. If there is surrounding erythema of approximately 15 cm in diameter. There is a punctate wound just proximal to this lesion consistent with surgical drainage. Normal range of motion. No edema. SKIN: Warm, dry, no rash. NEURO: No focal deficits. Alert and oriented x3. PSYCH: Normal mood and affect. Course Course Emergency Course: 15:10 - Bedside ultrasound performed by me demonstrates cobblestoning and a hypoechoic collection consistent with abscess in the left thigh. Discussed treatment options with the patient including bedside I&D, admission for surgical evaluation and antibiotics. The patient would prefer to be seen and drained by Dr. Han, and is hesitant regarding admissi
[2023-03-27 15:31] LABS: Basophils Absolute Auto 0.1 K/mm3 (0.0-0.1); Basophils Percent Auto 0.4 % (0.2-1.2); Eosinophils Absolute Auto 0.1 K/mm3 (0-0.3); Eosinophils Percent Auto 0.7 % (0-4.4); Hematocrit 35.4 % (42.0-52.0); Hemoglobin 11.9 g/dL (14.0-18.0); Immature Granulocyte Absolute 0.05 K/mm3 (0.00-0.031); Immature Granulocyte Percent A 0.4 % (0-0.5); Lymphocytes Absolute Auto 2.11 K/mm3 (0.9-3.2); Lymphocytes Percent Auto 17.3 % (18.3-44.2); Mean Corpuscular HGB Conc 33.6 g/dl (32-36); Mean Corpuscular Hemoglobin 30.7 pg (26-34); Mean Corpuscular Volume 91.5 fl (80-100); Mean Platelet Volume 8.4 fl (7.4-10.4); Neutrophils Absolute Auto 8.9 K/mm3 (1.3-6.7); Neutrophils Percent Auto 73.2 % (45.5-73.1); Platelet Count Result 319 k/mm3 (150-375); Red Blood Count 3.87 M/mm3 (4.6-6.20); Red Cell Distribution Width 12.7 % (11.5-14.5); White Blood Count 12.2 K/mm3 (4.5-10.0)
[2023-03-27 15:41] LABS: Alanine Aminotransferase 24 U/L (6-50); Albumin Level 3.9 g/dL (3.5-5.1); Alkaline Phosphatase 150 U/L (38-126); Anion Gap 10 mmol/L (8-16); Aspartate Amino Transferase 20 U/L (17-59); Bilirubin,Total 0.4 mg/dL (0.2-1.3); Blood Urea Nitrogen 10 mg/dL (9-20); Calcium 8.9 mg/dL (8.4-10.2); Carbon Dioxide 26 mmol/L (22-30); Chloride 96 mmol/L (98-107); Estimated CRCL calculation 160 ml/min; Estimated Glomerular Filt Rate > 60; Glucose 318 mg/dL (65-110); Potassium 3.8 mmol/L (3.4-5.0); Sodium 132 mmol/L (137-145)
[2023-03-27 17:00] VITALS: BP 130/80; PULSE 90; RESP 16; O2SAT 98
== END 2023-03-27 17:00 | disposition home or self-care (01) ==
PROVIDERS: Emergency Provider Preventive Medicine Aerospace Medicine
DX: L02.416 Cutaneous abscess of left lower limb (principal); M79.662 Pain in left lower leg; E11.9 Type 2 diabetes mellitus without complications; Z79.4 Long term (current) use of insulin
CPT/HCPCS: 36415; 80053; 85025; 99283